=== PATIENT | female | born 1995 | race Caucasian/White ===

== ENCOUNTER → 2020-07-01 11:04 | Outpatient (CLI) | payer BC, SELFPAY ==
--- NOTE | ~2020-07-01 | MR_ITS ---
EXAMINATION: Pari Riley DATE: 07/01/2020 11:55 INDICATION: Right jaw pain. Right temporomandibular joint disc displacement. TECHNIQUE: Magnetic resonance imaging (MRI) of the temporomandibular joints was performed without int ravenous contrast. Sequences included closed-mouth sagittal T2-weighted FSE and PD-weighted FSE and c oronal T1-weighted SE and open-mouth sagittal T2-weighted FSE and PD-weighted FSE and coronal T1-weig hted SE. COMPARISON: None. FINDINGS: The right mandibular condyle is normal in morphology. There is abnormal anterior displacement of the disk with mouth closed. There is decreased anterior translation of the mandibular condyle with the mo uth open. There is persistent abnormal anterior displacement of the disc with the mouth open. The left ventricular condyle is normal in morphology. There is abnormal anterior displacement of the disc with the mouth closed. There is decreased anterior translation of the mandibular condyle with th e mouth open. There is normal position of the disk with mouth open. IMPRESSION: 1. 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 2. Abnormal anterior displacement of the disc of the left temporomandibular joint with mild closed. N ormal position with mouth open. Reviewed, dictated and finalized at location B. IMPRESSION: 1. Abnormal anterior displacement of the disc of the right temporomandibular romina int with mouth closed and open. 2. Abnormal anterior displacement of the disc of the left temporomandibular isidoro nt with mild closed. Normal position with mouth open.
== END ==
PROVIDERS: PCP Family Medicine; Visit Provider Dentist General Practice
DX: M26.631 Articular disc disorder of right temporomandibular joint (principal); M26.621 Arthralgia of right temporomandibular joint
CPT/HCPCS: 70336